=== PATIENT | female | born 1995 | race Caucasian/White ===

== ENCOUNTER 2017-01-12 12:32 | Emergency (ER) | payer OTHER ==
[~2017-01-12] VITALS: Ht 162.6 cm; Wt 55.6 kg
[2017-01-12 12:56] VITALS: TEMP 37.2; Ht 162.6 cm; Wt 55.6 kg
[2017-01-12] MEDS ORDERED: ONDANSETRON INJ 2 MG/ML 2 ML VIAL IV STA (13:14)
[2017-01-12] MEDS ORDERED: SODIUM CHLORIDE 0.9% 1000ML 1,000 ML IV STA (13:14)
[2017-01-12] MEDS ORDERED: GI COCKTAIL PO STA (13:14)
[2017-01-12] MEDS ORDERED: LIDOCAINE HCL 2% VISC SOLN 20 ML UDC ONE (13:27)
[2017-01-12] MEDS ORDERED: ALUMINUM/MAGNESIUM SUSP 30 ML UDC ONE (13:27)
[2017-01-12 13:28] LABS: BASO % 0.3 %; BASO ABS # 0.02 K/uL (0-0.2); COMPLETE YES; EOS % 2.7 %; HEMATOCRIT 44.5 % (37-47); IG% 0.2 %; LYMPH % 21.2 %; LYMPH ABS # 1.26 K/uL (1.2-3.4); MEAN CELL VOLUME 88.6 fL (80-100); MEAN CORPUSCULAR HEMOGLOBIN 30.5 pg (25-34); MEAN CORPUSCULAR HGB CONC 34.4 g/dl (32-36); MEAN PLATELET VOLUME 11.5 fL (7.4-10.4); MONO % 7.1 %; NEUT % 68.5 %; PLATELET COUNT 190 K/uL (130-400); RED BLOOD COUNT 5.02 M/uL (4.2-5.4); WHITE BLOOD COUNT 5.95 K/uL (4.8-10.8)
--- NOTE | 2017-01-12 13:28 | EMERGENCY ROOM VISIT NOTE ---
History First contact with patient: 13:04 Chief Complaint: ABDOMINAL PAIN Stated Complaint: NAUSEA, ABD PAIN, VOMITING, DIARRHEA Nursing Triage Summary: Pt c/o mid upper abd pain, n/v/d since 9pm last night. History of Present Illness The patient is a 21 year old female who presents to the Emergency Room with complaints of epigastric pain, nausea/vomiting, and diarrhea that started last night around 9 PM. Patient states she has had some abdominal pain off and on for the past few months, but never with any vomiting or diarrhea. She states she started with abdominal pain, and vomited twice and has been persistently nauseated. She states "the diarrhea has been pretty constant," and she is unable to count the times. She has taken acid reducing medicine and antidiarrheal medicine, with some relief. She denies any bloody, maroon-colored , coffee-ground, or black stools or emesis. She denies any recent antibiotics. No known sick contacts. She does report recent overseas travel to [facility], where she was visiting her parents for the summer, she was there since September and returned yesterday. She denies any fevers or chills, chest pain, shortness of breath, cough, dizziness or passing out, back pain, urinary symptoms, rash. Review of Systems A complete 10 point review of systems was reviewed with the patient with pertinent positives and negatives as per history of present illness. All else were negative. Social History Smoking Status: Never Smoker Current/Historical Medications Scheduled Ondasetron Odt (Zofran Odt), 4 MG SL Q6H Physical Exam Vital Signs Date Time Temp Pulse Resp B/P (MAP) Pulse Ox O2 Delivery O2 Flow Rate FiO2 01/12/17 17:08 73 16 106/63 98 Room Air 01/12/17 14:24 85 16 105/66 99 Room Air 01/12/17 12:56 37.2 105 17 111/75 99 Room Air Physical Exam CONSTITUTIONAL: No acute distress. Mildly dehydrated, but otherwise well appearing and well nourished. Alert and oriented X 4 with normal affect. HEENT: Normocephalic, atraumatic. Pupils equal, round and reactive to light, EOMI. TMs normal. Pharynx normal. Tacky mucous membranes. NECK: Supple, full active range of motion without discomfort. RESPIRATORY: Clear to auscultation bilaterally with no wheezing, crackles, rhonchi or stridor. Equal expansion bilaterally. CARDIOVASCULAR: Tachycardic. Regular rhythm with no murmurs, rubs or gallops. Normal peripheral perfusion. No edema. GASTROINTESTINAL: Mildly tender in the epigastric and right upper quadrant with palpation. No guarding, no rebound. No hepatosplenomegaly. Soft, nondistended. Bowel sounds present in all quadrants. MUSCULOSKELETAL: Full range of motion of all joints without discomfort. INTEGUMENTARY: No rash or other significant dermatologic conditions noted. NEUROLOGIC: Cranial nerves II-XII grossly intact. No focal neurologic deficits noted. Medical Decision & Procedures Laboratory Results 01/12/17 13:09 Red Blood Count 5.02, Mean Corpuscular Volume 88.6, Mean Corpuscular Hemoglobin 30.5, Mean Corpuscular Hemoglobin Concent 34.4, Mean Platelet Volume 11.5, Neutrophils (%) (Auto) 68.5, Lymphocytes (%) (Auto) 21.2, Monocytes (%) (Auto) 7.1, Eosinophils (%) (Auto) 2.7, Basophils (%) (Auto) 0.3, Neutrophils # (Auto) 4.08, Lymphocytes # (Auto) 1.26, Monocytes # (Auto) 0.42, Eosinophils # (Auto) 0.16, Basophils # (Auto) 0.02 01/12/17 13:09 Test 01/12/17 13:09 01/12/17 13:36 01/12/17 15:55 White Blood Count 5.95 K/uL (4.8-10.8) Red Blood Count 5.02 M/uL (4.2-5.4) Hemoglobin 15.3 g/dL (12.0-16.0) Hematocrit 44.5 % (37-47) Mean Corpuscular Volume 88.6 fL (80-100) Mean Corpuscular Hemoglobin 30.5 pg (25-34) Mean Corpuscular Hemoglobin Concent 34.4 g/dl (32-36) Platelet Count 190 K/uL (130-400) Mean Platelet Volume 11.5 fL (7.4-10.4) Neutrophils (%) (Auto) 68.5 % Lymphocytes (%) (Auto) 21.2 % Monocytes (%) (Auto) 7.1 % Eosinophils (%) (Auto) 2.7 % Basophils (%) (Auto) 0.3 % Neutrophils # (Auto) 4.08 K/uL (1.4-6.5) Lymphocytes # (Auto) 1.26 K/uL (1.2-3.4) Monocytes # (Auto) 0.42 K/uL (0.11-0.59) Eosinophils # (Auto) 0.16 K/uL (0-0.5) Basophils # (Auto) 0.02 K/uL (0-0.2) RDW Standard Deviation 42.7 fL (36.4-46.3) RDW Coefficient of Variation 13.2 % (11.5-14.5) Immature Granulocyte % (Auto) 0.2 % Immature Granulocyte # (Auto) 0.01 K/uL (0.00-0.02) Anion Gap 8.0 mmol/L (3-11) Est Creatinine Clear Calc Drug Dose 91.5 ml/min Estimated GFR () 115.1 Estimated GFR (Non- 99.4 BUN/Creatinine Ratio 10.1 (10-20) Calcium Level 8.8 mg/dl (8.5-10.1) Total Bilirubin 0.9 mg/dl (0.2-1) Direct Bilirubin 0.2 mg/dl (0-0.2) Aspartate Amino Transf (AST/SGOT) 23 U/L (15-37) Alanine Aminotransferase (ALT/SGPT) 34 U/L (12-78) Alkaline Phosphatase 52 U/L (45-117) Total Protein 8.3 gm/dl (6.4-8.2) Albumin 3.9 gm/dl (3.4-5.0) Lipase 159 U/L (73-393) Urine Color YELLOW Urine Appearance CLOUDY (CLEAR) Urine pH 5.0 (4.5-7.5) Urine Specific [place] 1.025 (1.000-1.030) Urine Protein NEG (NEG) Urine Glucose (UA) NEG (NEG) Urine Ketones 1+ (NEG) Urine Occult Blood NEG (NEG) Urine Nitrite NEG (NEG) Urine Bilirubin NEG (NEG) Urine Urobilinogen NEG (NEG) Urine Leukocyte Esterase NEG (NEG) Urine WBC (Auto) 5-10 /hpf (0-5) Urine RBC (Auto) 10-30 /hpf (0-4) Urine Hyaline Casts (Auto) 5-10 /lpf (0-5) Urine Epithelial Cells (Auto) >30 /lpf (0-5) Urine Bacteria (Auto) 1+ (NEG) Urine Test NEG (NEG) Date/Time Source Procedure Growth Status 01/12/17 15:55 Stool C.difficile Toxin B Gene (PCR) - Final No C. difficile toxin B gene detected Complete Medications Administered Medications (Trade) Dose Ordered Sig/Ness Route Start Time Stop Time Status Last Admin Dose Admin Sodium Chloride 1,000 ml @ 999 mls/hr Q1H1M STAT IV 01/12/17 13:14 01/12/17 14:14 DC 01/12/17 13:32 999 MLS/HR Ondansetron HCl (Zofran Inj) 4 mg NOW STAT IV 01/12/17 13:14 01/12/17 13:18 DC 01/12/17 13:29 4 MG Lidocaine HCl (Viscous Lidocaine 2% Soln) 20 ml STK-MED ONCE .ROUTE 01/12/17 13:27 01/12/17 13:28 DC 01/12/17 13:29 20 ML Al Hydroxide/Mg Hydroxide (Maalox Susp) 30 ml STK-MED ONCE .ROUTE 01/12/17 13:27 01/12/17 13:28 DC 01/12/17 13:30 30 ML Medical Decision CC: Patient presenting with complaint of abdominal pain with vomiting and diarrhea Interpretation of Labs: No leukocytosis, no anemia, mild hypokalemia, no other significant abnormalities, normal renal function, normal liver enzymes and lipase. Many fecal leukocytes. C. difficile assay is negative. Stool cultures, O&P studies pending. UA appears to be contaminated, culture pending. Urine is negative. Differential Diagnosis: Includes, but not limited to traveler's diarrhea, viral versus bacterial gastroenteritis, gastrointestinal parasites, cholecystitis, cholelithiasis, pancreatitis, dehydration, among others. Medication Reconciliation: I attest that I have personally reviewed the patient' s current medication list. Vital signs review: I reviewed the patient's vital signs and interpret them as follows: T: Afebrile; BP: Normotensive; HR: Tachycardic; RR: Within normal limits; Pulse Ox: Within normal limits on room air. Blood pressure screening: The patient was found to have normal blood pressure on screening and does not require follow-up for repeat blood pressure check. Summary: Patient was evaluated at bedside, history of physical exam performed. Patient is alert and oriented, cooperative, in no acute distress and resting calmly in the stretcher. Patient's abdomen is soft and nondistended, mildly tender in the epigastric and right upper quadrant region with no radiation of pain, rebound tenderness, or guarding. Given patient's recent overseas travel and recent onset of symptoms, I am most concerned for infectious gastrointestinal etiology, and think this is less likely an acute surgical problem. Orders were placed at bedside for labs, UA, stool studies, IV fluid bolus, Zofran and GI cocktail. Patient discussed with Dr. Pacheco, who agrees with my assessment and plan. Labs reviewed as above, no significant abnormalities. Large fecal leukocytes confirms suspicion for infectious etiology. Patient reassessed multiple times throughout ED stay, she states she feels much better after interventions, she is tolerating PO fluids. She was able to provide stool sample for testing, but states her diarrhea has been significantly decreased compared to yesterday. Her vitals remained stable, she is afebrile and no longer tachycardic after IV fluids. I discussed with patient options for treatment, recommending against starting her on antibiotics at this time as her symptoms are improving, and this illness will most likely be self-limiting. Patient verbalized understanding and is in agreement with this plan. I did stress the importance of follow-up, as well as return precautions should her symptoms worsen, she verbalized understanding. Patient was discharged home in stable condition and ambulatory. Impression Primary Impression: Diarrhea Additional Impressions: Epigastric abdominal pain Hypokalemia Departure Information Dispostion Home / Self-Care Condition GOOD Prescriptions Ondasetron Odt (ZOFRAN ODT) 4 Mg Tab 4 MG SL Q6H for Nausea, #6 TAB Prov: Trudy Zuluaga CRNP 01/12/17 Patient Instructions ED Diarrhea Traveler, ED Diet [place], ED Diet High Potassium, [employer] [facility] [employer] Additional Instructions You have been treated in the Emergency Department your Abdominal Pain, diarrhea , and dehydration. Laboratory results have ruled out any emergent causes for your abdominal pain which would warrant admission. You have been prescribed Zofran to be used for any nausea or vomiting. Take as prescribed. For epigastric pain/discomfort, you may take [id number] medications such as Tums, Maalox, Mylanta, or other antacid medication.Take all medications as directed on the labeling. It is ESSENTIAL that you maintain adequate hydration with oral fluids! Some suggestions include: - Water is the IDEAL replacement for lost fluids. You should initially sip at the water to help facilitate increased intestinal absorption rate and to decrease the possibility of nausea/vomiting. - Carbohydrate/Electrolyte-Containing Drinks (i.e. Gatorade, Powerade, Pedialyte). All of these are good choices, but it is important to remember that all of these drinks contain a high concentration of sugar. - Popsicles, ice chips, and fruit juices are all other options. - My FAVORITE dehydration remedy is to mix a 1:1 solution of bottled Gatorade with bottled water. This dilution allows for a palatable flavor with added benefit of a reduction in the amount of sugar consumption. Eat a bland diet and avoid dairy, spicy foods, or fried foods until your diarrhea is resolved. As with any trip to the Emergency Department, you should follow-up with your Primary Care Provider in the next few days from today's visit. Return to the emergency department if your symptoms persist despite treatment plan outlined above or if the following symptoms occur: severe abdominal pain, fevers or chills, worsening nausea/vomiting, blood in your stool or urine. Problem Qualifiers Primary Impression: Diarrhea Diarrhea type: presumed infectious Qualified Codes: A09 - Infectious gastroenteritis and colitis, unspecified
[2017-01-12 13:55] LABS: BUN/CREATININE RATIO 10.1 (10-20); CALCIUM 8.8 mg/dl (8.5-10.1); CREATININE 0.84 mg/dl (0.60-1.20); POTASSIUM 3.2 mmol/L (3.5-5.1)
[2017-01-12 15:44] LABS: URINE APPEARANCE CLOUDY (CLEAR); URINE BILIRUBIN NEG (NEG); URINE COLOR YELLOW; URINE EPITHELIAL CELL AUTO >30 /lpf (0-5); URINE NITRITE NEG (NEG); URINE SPECIFIC GRAVITY 1.025 (1.000-1.030); UROBILINOGEN NEG (NEG)
[2017-01-12 15:48] LABS: MANUAL MICROSCOPIC REQUIRED? NO; REVIEW REQ? NO
[2017-01-12] MEDS ORDERED: ONDA4TAB10 SL (17:07)
[2017-01-12 17:08] VITALS: BP 106/63; PULSE 73; O2SAT 98
[2017-01-18 14:46] LABS: O&P SOURCE OTHER-STOOL
== END 2017-01-12 17:18 | disposition home or self-care (01) ==
LOC: C.EDB 12:35 → C.EDC 17:18
DX: A09 Infectious gastroenteritis and colitis, unspecified (principal); R10.13 Epigastric pain; E87.6 Hypokalemia